=== PATIENT | male | born 1980 | race Caucasian/White ===

== ENCOUNTER 2019-04-16 04:12 | Emergency (ER) | payer BC ==
[~2019-04-16] VITALS: Ht 170.2 cm; Wt 79.4 kg
[2019-04-16 04:15] VITALS: BP 141/92
[2019-04-16] MEDS ORDERED: DIPH,PERTUSS(ACELL),TET VAC/PF 0.5 ML IM-VACC ONE ×2 (04:44→05:00)
[2019-04-16] MEDS ORDERED: NEOSPORIN OINT. PKT 1 PACKET ONE (04:54)
--- NOTE | 2019-04-16 04:56 | NUR ---
pt medicated per lia hernandez at bs for wound cleaning/dressing
--- NOTE | 2019-04-16 05:15 | NUR ---
pt d/c with d/c summary and script. all questions answered. pt ambulates to registration desk with steady gait for d/c home.
== END 2019-04-16 05:22 | disposition home or self-care (01) ==
LOC: ED 05:20
DX: S80.871A Other superficial bite, right lower leg, initial encounter (principal); W54.0XXA Bitten by dog, initial encounter; Y93.89 Activity, other specified; Y92.89 Other specified places as the place of occurrence of the external cause; Y99.8 Other external cause status
CPT/HCPCS: 90471; 90715

== ENCOUNTER 2019-04-16 17:11 | Emergency (ER) | payer BC ==
[~2019-04-16] VITALS: Ht 170.2 cm; Wt 79.9 kg
[2019-04-16 17:17] VITALS: BP 142/91
--- NOTE | 2019-04-16 17:33 | NUR ---
Pt presents to ED with c/o right facial "numbness and bumps near nose and upper lip for a few days." NADN. Pt had call light within reach. No other needs expressed at this time. Pt denies cp, sob, n/v/d, trauma, or syncope.
--- NOTE | 2019-04-16 18:02 | NUR ---
Patient given discharge instructions and they have confirmed that they understand the instructions provided by [facility]. Patient ambulatory with steady gait. Pt left with dc paperwork and all personal belongings.
== END 2019-04-16 18:04 | disposition home or self-care (01) ==
LOC: ED 17:58
DX: K13.0 Diseases of lips (principal)
CPT/HCPCS: 99283